=== PATIENT | female | born 1960 | race Caucasian/White ===

== ENCOUNTER 2025-01-21 11:55 | Outpatient (CLI) | payer OTHER | END 2025-01-21 11:56 | disposition home or self-care (01) | LOC: CSHWCC 11:55 | PROVIDERS: ATTEND Nurse Practitioner Family | DX: S31.60 Unspecified open wound of abdominal wall with penetration into peritoneal cavity (principal); N18.9 Chronic kidney disease, unspecified; D63.1 Anemia in chronic kidney disease; D50.9 Iron deficiency anemia, unspecified | CPT/HCPCS: 97597; 99213; G0463 ==

== ENCOUNTER 2025-01-28 09:02 | Outpatient (CLI) | payer OTHER | END 2025-01-28 09:03 | disposition home or self-care (01) | LOC: CSHWCC 09:02 | PROVIDERS: ATTEND Nurse Practitioner Family | DX: S31.60 Unspecified open wound of abdominal wall with penetration into peritoneal cavity (principal); N18.9 Chronic kidney disease, unspecified; D63.1 Anemia in chronic kidney disease; D50.9 Iron deficiency anemia, unspecified ==